=== PATIENT | female | born 1990 | race Caucasian/White ===

== ENCOUNTER 2017-11-07 14:53 | Emergency (ER) | payer MEDICAID ==
[2017-11-07 15:11] VITALS: BP 119/59
--- NOTE | 2017-11-07 15:29 | ED ---
Breast Complaint - HPI Summary HPI Summary: 27F presents with mass in right breast for past month. It has not increased in size. She denies any fever or rash. She admits to bilateral breast tenderness although is due for period shortly. She is not on control. no family history of ovarian or breast cancer. She is anxious that has breast cancer. she does not have obgyn. - Allergy/Home Medications Allergies/Adverse Reactions: Allergies Allergy/AdvReac Type Severity Reaction Status Date / Time beestings Allergy Swelling Uncoded 11/07/17 15:11 suprex Allergy Unknown Uncoded 11/07/17 15:11 Reaction Details Home Medications: Home Medications NK [No Home Medications Reported] 11/07/17 [History Confirmed 11/07/17] PMH/Surg Hx/FS Hx/Imm Hx Endocrine/Hematology History: Denies: Hx Diabetes, Hx Thyroid Disease Cardiovascular History: Denies: Hx Hypertension Respiratory History: Denies: Hx Asthma, Hx Chronic Obstructive Pulmonary Disease (COPD) GI History: Denies: Hx Ulcer - Surgical History Surgery Procedure, Year, and Place: Feet age 11 Infectious Disease History: No Infectious Disease History: Denies: Hx Hepatitis, Hx Human Immunodeficiency Virus (HIV), Traveled Outside the [place] in Last 30 Days - Family History Known Family History: Positive: Other - no breast CA - Social History Alcohol Use: Daily Substance Use Type: Reports: Marijuana Smoking Status (MU): Former Smoker Review of Systems Negative: Fever Negative: Chest Pain Negative: Shortness Of Breath Positive: Other - right breast mass All Other Systems Reviewed And Are Negative: Yes Physical Exam Triage Information Reviewed: Yes Vital Signs On Initial Exam: Initial Vitals Temp Pulse Resp BP Pulse Ox 98.9 F 113 20 119/59 100 11/07/17 15:07 11/07/17 15:07 11/07/17 15:07 11/07/17 15:07 11/07/17 15:07 Vital Signs Reviewed: Yes Appearance: Positive: Well-Appearing Skin: Positive: Warm, Dry Head/Face: Positive: Normal Head/Face Inspection, Other - 1cm mobile mass at 12 position of right breast, Eyes: Positive: Normal, Conjunctiva Clear Neck: Positive: No Lymphadenopathy - of axilla Respiratory/Lung Sounds: Positive: Clear to Auscultation, Breath Sounds Present Cardiovascular: Positive: Normal, RRR Abdomen Description: Positive: Nontender, Soft Bowel Sounds: Positive: Present Musculoskeletal: Positive: Normal Neurological: Positive: Normal Psychiatric: Positive: Normal Diagnostics - Vital Signs Vital Signs Temp Pulse Resp BP Pulse Ox 11/07/17 15:07 98.9 F 113 20 119/59 100 - Laboratory Lab Statement: Any lab studies that have been ordered have been reviewed, and results considered in the medical decision making process. Breast Pain Course/Dx - Course Course Of Treatment: 27F presents with mass in right breast for past month. It has not increased in size. She denies any fever or rash. She admits to bilateral breast tenderness although is due for period shortly. She is not on control. no family history of ovarian or breast cancer. She is anxious that has breast cancer. she does not have obgyn. on exam has 1cm mobile mass at 12 position of right breast, no nipple discharge or rash. symmetrically breasts. discussed will not do u/s as no way to follow up. will give referral to manager body to follow up for u/s. patient understand and agrees with plan. - Differential Diagnoses Differential Diagnosis/HQI/PQRI: Breast Abscess, Breast Mass, Fibrocystic Breast Disease - Diagnoses Provider Diagnoses: Breast mass Discharge - Discharge Plan Condition: Good Disposition: HOME Patient Education Materials: Breast Mass (ED) Referrals: Jarod Ward MD [Medical Doctor] - Additional Instructions: Follow up with obgyn for continued care as may need u/s etc Take tyenlol or ibuprofen for any pain every 6 hours Return to ED if develop any fever or spreading redness or any new or worsening symptoms
== END 2017-11-07 15:42 | disposition home or self-care (01) ==
LOC: UCEAST 14:53
DX: N63.0 Unspecified lump in unspecified breast (principal); Z87.891 Personal history of nicotine dependence
CPT/HCPCS: 99201; G0463

== ENCOUNTER 2018-03-13 10:48 | Emergency (ER) | payer OTHER ==
[2018-03-13 11:08] VITALS: BP 117/76
[2018-03-13] MEDS ORDERED: Lidocaine 1%* 5 ML VIAL INJ ONE (11:17)
[2018-03-13] MEDS ORDERED: Tetan/Diph/Pertus SYR(Tdap)* 0.5 ML SYR(BOOSTRIX) use SYR IM ONE (11:18)
--- NOTE | 2018-03-13 11:42 | UC ---
Laceration HPI - HPI Summary HPI Summary: Patient notes that while removing a harvest knife from its sheath she accidentally caught her left thumb while at work today. She denies any foreign body sensation, numbness tingling or weakness and limited range of motion. Patient notes that her tetanus is out of date. She denies any other injuries and offers no other complaints. 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 Pain Intensity: 5 Aggravating Factors: Movement <Rachel Pride - Last Filed: 03/13/18 11:51> <Phan Lunsford - Last Filed: 03/13/18 13:16> - History Of Current Complaint Chief Complaint: UCLaceration Stated Complaint: LEFT THUMB LACERATION Time Seen by Provider: 03/13/18 11:12 - Allergies/Home Medications Allergies/Adverse Reactions: Allergies Allergy/AdvReac Type Severity Reaction Status Date / Time beestings Allergy Swelling Uncoded 03/13/18 11:02 suprex Allergy Unknown Uncoded 03/13/18 11:02 Reaction Details PMH/Surg Hx/FS Hx/Imm Hx Previously Healthy: Yes - Surgical History Surgical History: Yes Surgery Procedure, Year, and Place: Feet age 11 - Family History Known Family History: Positive: Other - no breast CA - Social History Occupation: Employed Full-time Alcohol Use: Daily Alcohol Amount: 1-2 beers daily Substance Use Type: Marijuana Substance Use Comment - Amount & Last Used: daily- last evening last time Smoking Status (MU): Former Smoker Amount Used/How Often: 2 months ago When Did the Patient Quit Smoking/Using Tobacco: about a week ago - Immunization History Most Recent Tetanus Shot: unknown Hx Tetanus, Diphtheria Vaccination: No Vaccination Up to Date: Yes <Rachel Pride - Last Filed: 03/13/18 11:51> Review of Systems Constitutional: Negative Skin: Other - cut L thumb Eyes: Negative ENT: Negative Respiratory: Negative Cardiovascular: Negative Gastrointestinal: Negative Genitourinary: Negative Motor: Negative Neurovascular: Negative Musculoskeletal: Negative Neurological: Negative Psychological: Negative Is Patient Immunocompromised?: No All Other Systems Reviewed And Are Negative: Yes <Rachel Pride - Last Filed: 03/13/18 11:51> Physical Exam Triage Information Reviewed: Yes Appearance: Well-Appearing Vital Signs: Initial Vital Signs Temp 98.7 F 03/13/18 11:02 Pulse 71 03/13/18 11:02 Resp 16 03/13/18 11:02 BP 117/76 03/13/18 11:02 Pulse Ox 100 03/13/18 11:02 Eyes: Positive: Conjunctiva Clear ENT: Positive: Normal ENT inspection Neck: Positive: Supple Respiratory: Positive: Lungs clear, Normal breath sounds Cardiovascular: Positive: RRR, No Murmur Abdomen Description: Positive: Nontender, No Organomegaly, Soft Bowel Sounds: Positive: Present Musculoskeletal: Positive: ROM Intact Neurological: Positive: Alert Psychological: Positive: Age Appropriate Behavior Skin Exam: Normal, Other - 1cm laceration side of L distal thumb. fat seen. mild bleeding. s/v/m is intact. rom intact against resistance. <Rachel Pride - Last Filed: 03/13/18 11:51> Vital Signs: Initial Vital Signs Temp 98.7 F 03/13/18 11:02 Pulse 71 03/13/18 11:02 Resp 16 03/13/18 11:02 BP 117/76 03/13/18 11:02 Pulse Ox 100 03/13/18 11:02 <Phan Lunsford - Last Filed: 03/13/18 13:16> Laceration Repair - Laceration Repair 1 Procedure Summary: sterile technique used. no fb, tendon, ligament or joint injury. minial bleeding. pt tolerated well. Description: Linear Laceration Size After Repair: Length (cm) - 1, Width (mm) - 2 Contamination/FB Removal: NA Debridement: NA Type Injection: Local Anesthesia Used: 1.0% Lido - 2ml Irrigation With Pressure Irrigation Device: Yes Closure Material: Sutures Closure Method: Single Layer Suture Of: Skin Suture Type: Nylon - horizontal mattress <Rachel Pride - Last Filed: 03/13/18 11:51> Laceration Course/Dx - Differential Dx - Laceration/Wound Provider Diagnoses: 1cm laceration L thumb <Rachel Pride - Last Filed: 03/13/18 11:51> Discharge - Sign-Out/Discharge Documenting (check all that apply): Discharge/Admit/Transfer - Billing Disposition and Condition Condition: STABLE Disposition: Home <Rachel Pride Last Filed: 03/13/18 11:51> - Billing Disposition and Condition Condition: STABLE Disposition: Home <Phan Lunsford Billie - Last Filed: 03/13/18 13:16> - Discharge Plan Condition: Stable Disposition: HOME Patient Education Materials: Care For Your Stitches (DC) Forms: *Work Release Referrals: No Primary Care Phys,NOPCP [Primary Care Provider] - Additional Instructions: return in 7 days for suture removal or sooner for any6 concerns . Per institutional requirements, I have reviewed the chart, however, I was not consulted specifically or made aware of this patient by the above midlevel provider. I did not personally evaluate, interact with , or disposition this patient
== END 2018-03-13 11:52 | disposition home or self-care (01) ==
LOC: UCCORT 10:48
DX: S61.012A Laceration without foreign body of left thumb without damage to nail, initial encounter (principal); W26.0XXA Contact with knife, initial encounter; Y93.89 Activity, other specified; Y92.89 Other specified places as the place of occurrence of the external cause; Y99.0 Civilian activity done for income or pay; Z88.1 Allergy status to other antibiotic agents; Z87.891 Personal history of nicotine dependence
CPT/HCPCS: 12001; 90471; 90715; 99211; G0463

== ENCOUNTER 2018-03-20 12:42 | Emergency (ER) | payer OTHER ==
--- NOTE | 2018-03-20 12:44 | UC ---
Laceration HPI - HPI Summary HPI Summary: 28 yo female presents for suture removal. She had sutures placed 7 days ago to her left thumb. Has had no issues - History Of Current Complaint Stated Complaint: SUTURE REMOVAL Time Seen by Provider: 03/20/18 12:44 Hx Obtained From: Patient Hx Last Menstrual Period: 02/09/18 Laceration Location: Finger Mechanism Of Injury: Sharp Trauma - Allergies/Home Medications Allergies/Adverse Reactions: Allergies Allergy/AdvReac Type Severity Reaction Status Date / Time beestings Allergy Swelling Uncoded 03/20/18 12:47 suprex Allergy Unknown Uncoded 03/20/18 12:47 Reaction Details PMH/Surg Hx/FS Hx/Imm Hx - Additional Past Medical History Additional PMH: None Previously Healthy: Yes - Surgical History Surgical History: Yes Surgery Procedure, Year, and Place: Feet age 11 - Family History Known Family History: Positive: Other - no breast CA - Social History Occupation: Employed Full-time Lives: With Family Alcohol Use: Daily Alcohol Amount: 1-2 beers daily Substance Use Type: Marijuana Substance Use Comment - Amount & Last Used: daily- last evening last time Smoking Status (MU): Former Smoker Amount Used/How Often: 2 months ago When Did the Patient Quit Smoking/Using Tobacco: about a week ago - Immunization History Most Recent Tetanus Shot: unknown Hx Tetanus, Diphtheria Vaccination: No Vaccination Up to Date: Yes Review of Systems Constitutional: Negative Skin: Other - Sutures in place left thumb Respiratory: Negative Cardiovascular: Negative Neurovascular: Negative Musculoskeletal: Negative Neurological: Negative Psychological: Negative All Other Systems Reviewed And Are Negative: Yes Physical Exam - Summary Physical Exam Summary: GENERAL: NAD. WDWN. No pain distress. SKIN: Left thumb one horizontal mattress suture in place. Lac well healed and approximated. No streaking, bleeding, or drainage. NECK: Supple. Nontender. No lymphadenopathy. CHEST: No accessory muscle use. Breathing comfortably and in no distress. CV: Pulses intact left radial and ulnar MSK: Left thumb FROM. NEURO: Alert. CN II-XII grossly intact. PSYCH: Age appropriate behavior. Triage Information Reviewed: Yes Vital Signs: Vital Signs: Temp Pulse Resp BP Pulse Ox 98.5 F 79 16 116/67 100 03/20/18 12:48 03/20/18 12:48 03/20/18 12:48 03/20/18 12:48 03/20/18 12:48 Laceration Course/Dx - Course/Dx Course Of Treatment: One suture removed without issues. Lac is well healed. - Differential Dx - Laceration/Wound Provider Diagnoses: suture removal Discharge - Sign-Out/Discharge Documenting (check all that apply): Discharge/Admit/Transfer - Discharge Plan Condition: Stable Disposition: HOME Patient Education Materials: Stitches Removal (ED) Referrals: No Primary Care Phys,NOPCP [Primary Care Provider] - Additional Instructions: If you develop a fever, shortness of breath, chest pain, new or worsening symptoms - please call your PCP or go to the ED. - Billing Disposition and Condition Condition: STABLE Disposition: Home
[2018-03-20 12:50] VITALS: BP 116/67
== END 2018-03-20 12:57 | disposition home or self-care (01) ==
LOC: UCCORT 12:42
DX: S61.012D Laceration without foreign body of left thumb without damage to nail, subsequent encounter (principal); W26.9XXD Contact with unspecified sharp object(s), subsequent encounter; Z88.2 Allergy status to sulfonamides; Z91.030 Bee allergy status; Z87.891 Personal history of nicotine dependence